=== PATIENT | female | born 1980 | race Two or more races ===

== ENCOUNTER → 2018-05-09 | Outpatient (CLI) | payer OTHER ==
[~2018-05-09] MED LIST: AMOXICILLIN500 MG PO; ENDOCET 5-3251 EACH PO; FEOSOL325 MG PO; HYDROCODON-ACE1 EAC7 PO; IBUPROFEN800 MG PO; MIRALAX17 GM PO; MOTRIN800 MG PO; NAPROXEN500 MG PO; NO HOME MEDICATIONS; NOHOMEMEDS; PRENATAL MULTI1 EAC2 PO; PRENATAL ONE T1 EACH PO; PRENATAL TABLE1 EAC3 PO; VALTREX50 MG/ML PO; ZANTAC150 MG PO; ZOFRAN4 MG PO
== END | disposition home or self-care (01) ==
LOC: CDC 14:47
DX: Z01.810 Encounter for preprocedural cardiovascular examination (principal); G56.02 Carpal tunnel syndrome, left upper limb; M79.642 Pain in left hand
CPT/HCPCS: 93000